=== PATIENT | male | born 1990 | race African-American/Black ===

== ENCOUNTER 2019-11-30 17:17 | Emergency (ER) | payer SELFPAY ==
[2019-11-30 17:31] VITALS: BP 108/63; PULSE 96; TEMP 97.6; BMI 36.3
--- NOTE | 2019-11-30 18:22 | PDOC ---
History of Present Illness <Allen Roblero - Last Filed: 11/30/19 19:30> - History of Present Illness Initial Comments: 11/30/19 18:20 CHIEF COMPLAINT: cough, fatigue HISTORY OF PRESENT ILLNESS: 29 yo M with no PMH presents to [facility] with cough, chills, generalized malaise, and diarrhea x 3 days. Patient denies any vomiting and is unsure if he has had a fever. Patient reports having taken his son's amoxicillin, Tamiflu, and Advil cold & flu without relief. No recent travel or sick contacts. PAST MEDICAL HISTORY: Denies past medical history FAMILY HISTORY: Denies SOCIAL HISTORY: Denies tobacco, alcohol, illicit drug use. SURGICAL HISTORY: Denies ALLERGIES: No known drug allergies REVIEW OF SYSTEMS General/Constitutional: Generalized malaise. Denies fever or chills. Denies weakness, weight change. HEENT: Denies change in vision. Denies ear pain or discharge. Denies sore throat. Cardiovascular: Denies chest pain or shortness of breath. Respiratory: Cough x 3 days. Denies wheezing, or hemoptysis. Gastrointestinal: Denies nausea, vomiting, diarrhea or constipation. Denies rectal bleeding. Genitourinary: Denies dysuria, frequency, or change in urination. Musculoskeletal: Denies joint or muscle swelling or pain. Denies neck or back pain. Skin and breasts: Denies rash or easy bruising. Neurologic: Denies headache, vertigo, loss of consciousness, or loss of sensation. Psychiatric: Denies depression or anxiety. PHYSICAL EXAM General Appearance: Well-appearing, appropriately dressed. No apparent distress. HEENT: EOMI, PERRLA, normal ENT inspection, normal voice, TMs normal, pharynx normal. No conjunctival pallor. No photophobia, scleral icterus. Neck: Supple. Trachea midline. No tenderness, rigidity, carotid bruit, stridor , lymphadenopathy, or thyromegaly. Respiratory/Chest: Lungs CTAB. No shortness of breath, chest tenderness, respiratory distress, accessory muscle use. No crackles, rales, rhonchi, stridor , wheezing, dullness Cardiovascular: RRR. S1, S2. No JVD, murmur, bradycardia, tachycardia. Vascular Pulses: Dorsalis-Pedis (R): 2+, Dorsalis-Pedis (L): 2+ Gastrointestinal/Abdominal: Normal bowel sounds. Abdomen soft, non-distended. No tenderness or rebound tenderness. No organomegaly, pulsatile mass, guarding , hernia, hepatomegaly, splenomegaly. Lymphatic: No adenopathy, tenderness. Musculoskeletal/Extremities: Normal inspection. FROM of all extremities, normal capillary refill. Pelvis Stable. No CVA tenderness. No tenderness to extremities, pedal edema, swelling, erythema or deformity. Integumentary: Appropriate color, dry, warm. No cyanosis, erythema, jaundice or rash Neurologic: head wrestling coach II-XII intact. Fully oriented, alert. Appropriate mood/affect. Motor strength 5/5. No appreciable EOM palsy, facial droop or sensory deficit. <Dior Begum - Last Filed: 12/04/19 14:55> - General Chief Complaint: Cold Symptoms Stated Complaint: COLD SYPTOMS Time Seen by Provider: 11/30/19 17:40 Past History <Allen Roblero - Last Filed: 11/30/19 19:30> - Past Medical History COPD: No - Immunization History Immunization Up to Date: No - Psycho Social/Smoking Cessation Hx Smoking History: Never smoked Have you smoked in the past 12 months: No Information on smoking cessation initiated: Yes Hx Alcohol Use: No Drug/Substance Use Hx: No Substance Use Type: None <Dior Begum - Last Filed: 12/04/19 14:55> - Past Medical History Allergies/Adverse Reactions: Allergies Allergy/AdvReac Type Severity Reaction Status Date / Time No Known Allergies Allergy Verified 01/26/16 19:06 Home Medications: Ambulatory Orders Benzonatate [Tessalon Pearls -] 100 mg PO TID #21 capsule 11/30/19 Ibuprofen 800 mg PO PRN PRN 11/30/19 Oseltamivir Phosphate [Tamiflu] 75 mg PO BID #10 capsule 11/30/19 Pseudoephedrine HCl [Pseudoephedrine ER] 120 mg PO BID #20 tablet.er 11/30/19 *Physical Exam - Vital Signs Last Vital Signs Temp Pulse Resp BP Pulse Ox 97.6 F 96 H 18 108/63 96 11/30/19 17:27 11/30/19 17:27 11/30/19 17:27 11/30/19 17:27 11/30/19 17:27 <Allen Roblero - Last Filed: 11/30/19 19:30> - Vital Signs Last Vital Signs Temp Pulse Resp BP Pulse Ox 97.6 F 96 H 18 108/63 96 11/30/19 17:27 11/30/19 17:27 11/30/19 17:27 11/30/19 17:27 11/30/19 17:27 <Dior Begum - Last Filed: 12/04/19 14:55> Medical Decision Making - Medical Decision Making 11/30/19 18:21 29 yo M with no PMH presents to [facility] with cough, chills, generalized malaise, and diarrhea x 3 days. -flu swab <Dior Begum - Last Filed: 12/04/19 14:55> Discharge <Allen Roblero - Last Filed: 11/30/19 19:30> - Discharge Information Problems reviewed: Yes - Admission No <Dior Begum - Last Filed: 12/04/19 14:55> - Discharge Information Clinical Impression/Diagnosis: Influenza Condition: Stable Disposition: HOME - Additional Discharge Information Prescriptions: Benzonatate [Tessalon Pearls -] 100 mg PO TID #21 capsule Oseltamivir Phosphate [Tamiflu] 75 mg PO BID #10 capsule Pseudoephedrine HCl [Pseudoephedrine ER] 120 mg PO BID #20 tablet.er - Follow up/Referral Referrals: Oneal Danielson MD [Staff Physician] - - Patient Discharge Instructions Patient Printed Discharge Instructions: DI for Influenza -- Adult - Post Discharge Activity Work/Back to School Note: Back to Work
== END 2019-11-30 19:59 | disposition home or self-care (01) ==
LOC: JERFT 17:17
DX: J09.X2 Influenza due to identified novel influenza A virus with other respiratory manifestations (principal)
CPT/HCPCS: 87804; 99281-25

== ENCOUNTER 2022-09-12 15:15 | Inpatient (IN) | payer OTHER ==
[2022-09-12 16:45] LABS: BASO % 0.6 % (0-2.0); EOS % 2.1 % (0-4.5); HEMATOCRIT 42.8 % (35.4-49); HEMOGLOBIN 14.3 GM/dL (11.7-16.9); LYMPH % 37.5 % (8-40); MCH 28.7 pg (25.7-33.7); MCHC 33.3 g/dl (32.0-35.9); MEAN PLT VOLUME 9.7 fl (7.5-11.1); MONO % 10.3 % (3.8-10.2); NEUT % 49.5 % (42.8-82.8); PLATELET COUNT 211 10^3/uL (134-434); RBC 4.97 M/mm3 (4.00-5.60); RDW 14.1 % (11.9-15.9); WHITE BLOOD COUNT 8.6 K/mm3 (4.0-10.0)
[2022-09-12 16:57] LABS: INR 1.04 (0.83-1.09)
[2022-09-12 17:00] LABS: ACTIVATED PTT 30.3 SECONDS (25.2-36.5)
[2022-09-12 17:16] LABS: BLOOD UREA NITROGEN 11.1 mg/dL (7-18); CALCIUM 9.5 mg/dL (8.5-10.1)
[2022-09-12 17:17] LABS: ALBUMIN 3.7 g/dl (3.4-5.0)
[2022-09-12] MEDS ORDERED: morphine CARPU-JECT 4 MG/1 ML DISP.SYRIN IVPUSH ONE (17:18)
[2022-09-12 17:21] LABS: BILIRUBIN,TOTAL 0.9 mg/dL (0.2-1); TOT PROT 7.9 g/dl (6.4-8.2)
[2022-09-12] MEDS ORDERED: morphine SULFATE 4 MG/ML VIAL ONE (17:30)
[2022-09-13] MEDS ORDERED: ACETAMINOPHEN 325 MG TABLET (FP) PO PRN (01:01)
[2022-09-13 04:24] VITALS: RESP 20; BMI 43.0
[2022-09-13 09:02] LABS: BASO % 0.5 % (0-2.0); EOS % 2.3 % (0-4.5); HEMATOCRIT 40.6 % (35.4-49); HEMOGLOBIN 13.4 GM/dL (11.7-16.9); LYMPH % 35.2 % (8-40); MCH 28.5 pg (25.7-33.7); MEAN CELL VOLUME 86.2 fl (80-96); MEAN PLT VOLUME 9.7 fl (7.5-11.1); MONO % 10.3 % (3.8-10.2); NEUT % 51.7 % (42.8-82.8); PLATELET COUNT 191 10^3/uL (134-434); RBC 4.71 M/mm3 (4.00-5.60); RDW 13.8 % (11.9-15.9); WHITE BLOOD COUNT 6.3 K/mm3 (4.0-10.0)
[2022-09-13 09:28] LABS: ALBUMIN 3.4 g/dl (3.4-5.0); BLOOD UREA NITROGEN 10.7 mg/dL (7-18); CALCIUM 9.1 mg/dL (8.5-10.1); MAGNESIUM 2.2 mg/dL (1.8-2.4)
[2022-09-13 09:31] LABS: CREATININE 0.9 mg/dL (0.55-1.3); PHOSPHOROUS 4.1 mg/dL (2.5-4.9)
[2022-09-13 09:33] LABS: BILIRUBIN,TOTAL 1.4 mg/dL (0.2-1)
[2022-09-13] MEDS: ENOXAPARIN NA (PORCINE) 40 MG/0.4 ML DISP.SYRIN SQ SCH ×2 (11:10→22:01)
[2022-09-14 07:22] VITALS: BP 122/78; PULSE 84; TEMP 97.8
[2022-09-14] MEDS: ENOXAPARIN NA (PORCINE) 40 MG/0.4 ML DISP.SYRIN SQ SCH (11:23)
== END 2022-09-14 13:28 | disposition home or self-care (01) | DRG 556 ==
LOC: JER 15:15 → JERBED 18:25 → J8W 09-13 03:33
PROVIDERS: ADMIT Internal Medicine; ATTEND Internal Medicine
DX: R29.898 Other symptoms and signs involving the musculoskeletal system (principal); Z68.41 Body mass index [BMI] 40.0-44.9, adult; J45.909 Unspecified asthma, uncomplicated; E66.01 Morbid (severe) obesity due to excess calories; M54.50 Low back pain, unspecified; R32 Unspecified urinary incontinence; W18.39XA Other fall on same level, initial encounter; Y92.89 Other specified places as the place of occurrence of the external cause; K76.0 Fatty (change of) liver, not elsewhere classified
CPT/HCPCS: 0241U-QW; 36415; 70551-TC; 72141-TC; 72146-TC; 72148-TC; 76705-TC; 80053; 82550; 82553; 82962; 83036; 83735; 84100; 84443; 85025; 85610; 85730; 86618; 86850; 86900; 86901; 93005; 93010; 97116-GP; 97161-GP; 99285-25

== ENCOUNTER 2023-10-03 13:38 | Emergency (ER) | payer OTHER ==
[2023-10-03 13:48] VITALS: BP 125/83; PULSE 103; RESP 20; TEMP 98.2
[2023-10-03 17:54] LABS: VENOUS BASE EXCESS 0.6 mmol/L (-2-2); VENOUS O2 SATURATION 89.3 % (70-80); VENOUS PH 7.415 (7.310-7.410)
[2023-10-03 17:57] LABS: BASO % 0.4 % (0-2.0); EOS % 3.1 % (0-4.5); HEMATOCRIT 41.7 % (35.4-49); HEMOGLOBIN 14.3 GM/dL (11.7-16.9); LYMPH % 37.8 % (8-40); MCH 28.9 pg (25.7-33.7); MCHC 34.4 g/dl (32.0-35.9); MEAN CELL VOLUME 84.1 fl (80-96); MEAN PLT VOLUME 9.8 fl (7.5-11.1); MONO % 9.2 % (3.8-10.2); NEUT % 49.5 % (42.8-82.8); PLATELET COUNT 188 10^3/uL (134-434); RBC 4.96 M/mm3 (4.00-5.60); WHITE BLOOD COUNT 8.5 K/mm3 (4.0-10.0)
[2023-10-03 18:08] LABS: INR 1.05 (0.83-1.09); PROTHROMBIN TIME (PATIENT) 12.2 SEC (9.7-13.0)
[2023-10-03 18:11] LABS: ACTIVATED PTT 27.8 SECONDS (25.2-36.5)
[2023-10-03 18:12] LABS: POTASSIUM 3.6 mmol/L (3.5-5.1)
[2023-10-03 18:14] LABS: BLOOD UREA NITROGEN 10.8 mg/dL (7-18); CALCIUM 9.4 mg/dL (8.5-10.1)
[2023-10-03 18:15] LABS: ALBUMIN 3.9 g/dl (3.4-5.0)
[2023-10-03 18:19] LABS: BILIRUBIN,TOTAL 1.5 mg/dL (0.2-1); TOT PROT 8.3 g/dl (6.4-8.2)
[2023-10-03 20:12] LABS: PH,URINE 5.5 (5.0-8.0); URINE APPEARANCE CLEAR; URINE BILIRUBIN NEGATIVE (NEGATIVE); URINE COLOR YELLOW; URINE GLUCOSE (UA) NEGATIVE (NEGATIVE); URINE KETONE NEGATIVE (NEGATIVE); URINE LEUK ESTERASE NEGATIVE (NEGATIVE); URINE NITRITE NEGATIVE (NEGATIVE); URINE PROTEIN NEGATIVE (NEGATIVE); URINE UROBILINOGEN 0.2 mg/dL (0.2-1.0)
== END 2023-10-03 19:02 | disposition home or self-care (01) ==
LOC: JER 13:38
DX: R42 Dizziness and giddiness (principal); R11.0 Nausea
CPT/HCPCS: 36415; 80053; 81003; 82010; 82803; 82962; 84439; 84443; 84484; 85025; 85610; 85730; 87086; 93005; 93010; 99284-25

== ENCOUNTER 2024-10-23 15:52 | Emergency (ER) | payer BC, OTHER ==
[2024-10-23 16:13] VITALS: BP 117/75; PULSE 102; RESP 19; TEMP 98.2; BMI 35.4
[2024-10-23] MEDS ORDERED: ACETAMINOPHEN INJECTION 100 ML ONE (17:06)
[2024-10-23] MEDS ORDERED: ONDANSETRON *ODT* 4 MG TABLET ONE (17:06)
[2024-10-23] MEDS ORDERED: KETOROLAC TROMETHAMINE 15 MG/ML VIAL ONE (17:06)
[2024-10-23] MEDS: ACETAMINOPHEN 1000 MG/100 ML BAG IVPB ONE (17:13)
[2024-10-23] MEDS: ONDANSETRON *ODT* 4 MG TABLET SL ONE (17:14)
[2024-10-23] MEDS: KETOROLAC TROMETHAMINE 15 MG/ML VIAL IVPUSH ONE (17:14)
[2024-10-23 17:19] LABS: BASO % 0.9 % (0-2.0); EOS % 1.1 % (0-4.5); HEMATOCRIT 41.7 % (35.4-49); HEMOGLOBIN 14.1 GM/dL (11.7-16.9); LYMPH % 28.7 % (8-40); MCH 28.7 pg (25.7-33.7); MCHC 33.8 g/dl (32.0-35.9); MEAN CELL VOLUME 84.8 fl (80-96); MEAN PLT VOLUME 9.4 fl (7.5-11.1); MONO % 15.7 % (3.8-10.2); NEUT % 53.6 % (42.8-82.8); PLATELET COUNT 197 10^3/uL (134-434); RBC 4.91 M/mm3 (4.00-5.60); RDW 14.1 % (11.9-15.9); WHITE BLOOD COUNT 6.7 K/mm3 (4.0-10.0)
[2024-10-23 17:26] LABS: INR 1.07 (0.83-1.09); PROTHROMBIN TIME (PATIENT) 12.3 SEC (9.7-13.0)
[2024-10-23 17:29] LABS: ACTIVATED PTT 26.8 SECONDS (25.2-36.5)
[2024-10-23 17:37] LABS: POTASSIUM 4.4 mmol/L (3.5-5.1)
[2024-10-23 17:39] LABS: ALBUMIN 3.7 g/dl (3.4-5.0); BLOOD UREA NITROGEN 8.4 mg/dL (7-18); CALCIUM 9.4 mg/dL (8.5-10.1); MAGNESIUM 2.1 mg/dL (1.8-2.4)
[2024-10-23 17:43] LABS: CREATININE 1.1 mg/dL (0.55-1.3)
[2024-10-23 17:44] LABS: BILIRUBIN,TOTAL 1.7 mg/dL (0.2-1); TOT PROT 7.9 g/dl (6.4-8.2)
[2024-10-23 18:07] LABS: PH,URINE 5.5 (5.0-8.0); URINE APPEARANCE CLEAR; URINE BILIRUBIN NEGATIVE (NEGATIVE); URINE COLOR YELLOW; URINE GLUCOSE (UA) NEGATIVE (NEGATIVE); URINE KETONE NEGATIVE (NEGATIVE); URINE LEUK ESTERASE NEGATIVE (NEGATIVE); URINE NITRITE NEGATIVE (NEGATIVE); URINE PROTEIN NEGATIVE (NEGATIVE); URINE UROBILINOGEN 0.2 mg/dL (0.2-1.0)
[2024-10-23] MEDS ORDERED: DEXAMETHASONE SOD PHOSPHATE 10 MG/1 ML VIAL ONE (18:31)
[2024-10-23] MEDS ORDERED: METOCLOPRAMIDE HCL INJECTION 10 MG/2 ML VIAL ONE (18:31)
[2024-10-23] MEDS: DEXAMETHASONE SOD PHOSPHATE 10 MG/1 ML VIAL IVPUSH ONE (18:43)
[2024-10-23] MEDS: SODIUM CHLORIDE 0.9% 500 ML INFUS.BAG IV ONE (18:43)
[2024-10-23] MEDS: METOCLOPRAMIDE HCL INJECTION 10 MG/2 ML VIAL IVPB ONE (18:43)
[2024-10-23] MEDS ORDERED: ACETAMINOPHEN/CAFFEINE/BUTALBITAL 1 TAB ONE (19:41)
[2024-10-23] MEDS: ACETAMINOPHEN/CAFFEINE/BUTALBITAL 1 TAB PO ONE (19:59)
== END 2024-10-23 19:59 | disposition home or self-care (01) ==
LOC: JER 15:52
PROC: 3E033NZ Introduction of Analgesics, Hypnotics, Sedatives into Peripheral Vein, Percutaneous Approach (ICD-10-PCS; principal; 2024-10-23)
PROC: 3E033GC Introduction of Other Therapeutic Substance into Peripheral Vein, Percutaneous Approach (ICD-10-PCS; 2024-10-23)
PROC: 3E0333Z Introduction of Anti-inflammatory into Peripheral Vein, Percutaneous Approach (ICD-10-PCS; 2024-10-23)
PROC: 3E033GC Introduction of Other Therapeutic Substance into Peripheral Vein, Percutaneous Approach (ICD-10-PCS; 2024-10-23)
DX: G43.911 Migraine, unspecified, intractable, with status migrainosus (principal); H53.149 Visual discomfort, unspecified
CPT/HCPCS: 36415; 70450-TC; 80053; 81003; 83735; 85025; 85610; 85730; 87086; 93005; 93010; 99285-25; J0131; J1100; Q0162